=== PATIENT | male | born 1945 | race Caucasian/White ===

== ENCOUNTER → 2024-11-21 15:06 | Outpatient (REF) | payer MEDICARE, OTHER, SELFPAY | LOC: HWRCS 15:06 | PROVIDERS: ATTENDING PHYSICIAN Internal Medicine Cardiovascular Disease; FAMILY PHYSICIAN Internal Medicine Geriatric Medicine | DX: R06.09 Other forms of dyspnea (principal) | CPT/HCPCS: 93306 ==

== ENCOUNTER → 2024-11-26 11:37 | Outpatient (REF) | payer MEDICARE, OTHER, SELFPAY | LOC: HWRCS 11:37 | PROVIDERS: ATTENDING PHYSICIAN Internal Medicine Cardiovascular Disease; FAMILY PHYSICIAN Internal Medicine Geriatric Medicine | DX: R06.09 Other forms of dyspnea (principal) | CPT/HCPCS: 78452; 93017; A9500; J2785 ==

== ENCOUNTER 2025-05-19 19:43 | Emergency (ER) | payer MEDICARE, OTHER, SELFPAY ==
[2025-05-19] MEDS: LIDOCAINE URO-JET 2% 1 SYRINGE TOPICAL (20:04)
[2025-05-19 20:20] VITALS: BMI 28.9
[2025-05-19 21:00] VITALS: BP 163/90
[2025-05-19 21:04] LABS: Urine Character Clear (Clear)
[2025-05-19 21:08] LABS: Urine Squamous Cell 0-2 /LPF (Few); Urine White Cell 0-2 /HPF (0-5)
[2025-05-19] MEDS: FLEET PHOSPHATE ENEMA-ADULT 135 ML RECTAL (21:28)
--- NOTE | 2025-05-19 22:17 | ED.GENMED ---
History of Present Illness
General
Chief Complaint: Abdominal Symptoms
Source: patient
Exam Limitations: none
Time Seen by Provider: 05/19/25 19:56
Nursing documentation reviewed up to this point in time: agreed with
History of Present Illness
History of Present Illness:
Patient who has been taking OxyContin daily since fall and subsequent thoracic fracture 1 month ago, presents to ED secondary to difficulty with bowel movement despite urge over the past 1 week. This afternoon, patient went to the bathroom on
multiple occasions and sat on the toilet, but was unable to have bowel movement. Approximately 2 hours prior to arrival in ED, patient also noticed that he was unable to urinate despite urge. Denies nausea or vomiting. Denies fever or chills.
Denies previous history of similar symptoms. Denies loss of appetite.
Past History
Past History
ED Past Medical History: None
ED Past Surgical History: None
Review of Systems
Review of Systems
Allergies reviewed?: Yes
All Other Systems: ROS reviewed and negative except as documented in HPI and ROS
Constitutional: Reports no symptoms; Denies fever or chills
ABD/GI: Reports abdominal pain and constipated; Denies vomiting
: Reports difficulty voiding
Musculoskeletal: Reports no symptoms
Skin: Reports no symptoms
Neurological: Reports no symptoms
Phy Exam
Physical Exam
Physical Exam:
Physical Exam
General: mild distress, not acutely ill. afebrile
Head: nc/at. eomi
Neck: supple. normal range of motion
Abdomen: normal bowel sounds. not tender. no distention
Neuro: alert and oriented x3. no focal neurological deficits
Skin: no rash
Psychiatric: well kept. interactive and cooperative
Extremities: no edema. no calf tenderness.
Sepsis
Sepsis Screening
Sepsis Assessment: Sepsis Ruled Out
Sepsis Screen
Sepsis Screen: Sepsis Ruled Out
Date: 05/19/25
Time: 23:48
Course
Orders/Labs/Results
Orders:
Orders
05/19/25 19:56
Valencia Placement- Treatment ONCE
Reason for insertion: Acute Retention
05/19/25 20:02
Lidocaine 2% [Lidocaine Uro-Jet 2%] 1 syringe .ROUTE .STK-MED ONE
Lidocaine 2% [Lidocaine Uro-Jet 2%] 1 syringe TOPICAL NOW STA
05/19/25 20:37
Urinalysis Reflex To Culture Urgent
Date Specimen was Collected: 05/19/25
Time Specimen was Collected: 20:35
Urine Microscopic Reflex Cult Urgent
05/19/25 20:55
Phosphate Enema [Fleet Phosphate Enema-Adult] 135 ml RECTAL NOW STA
Abnormal Lab Results
05/19/25
20:37
Ur Occult Blood Reflex 1+ A
(Negative)
Urine RBC 3-6 A /HPF
(0-2)
Urine Bacteria (Reflex) Few A
(Negative)
Urine Glucose 4+ A
(Negative)
Urine Albumin (Reflex) 2+ A
(Neg - Trace)
Vital Signs
Initial and Last Documented VS:
Initial Vital Signs
Temp
98.6 F
05/19/25 19:47
Last Documented Vital Signs
Temp Pulse Resp BP Pulse Ox
98.6 F 92 16 162/92 98
05/19/25 19:47 05/19/25 22:41 05/19/25 22:41 05/19/25 22:41 05/19/25 22:41
MDM/Problems Addressed
MDM/Problems Addressed:
Valencia catheter inserted after bladder scan, with improvement in symptoms. Subsequently, rectal exam (DORY Ng, at bedside) reveals moderate amount of hard stool, which was removed manually. Afterwards, patient was given Fleet enema, with large
bowel movement afterwards. Patient reports significant improvement in symptoms. Patient's presenting urinary retention, likely secondary to narcotic utilization along with constipation. Without patient having had previous urinary difficulties, no
indication to leave Valencia catheter in at this time. As such, Valencia catheter will be removed prior to discharge, with recommendation to follow-up with PCP as an outpatient. Patient will be encouraged to continue to use daily stool softener along
with laxatives, as well as talking with his primary care physician about discontinuing narcotics.
*Pulse Oximetry
SaO2: 100
Patient hypoxic: no
*Critical Care Note
Total Time (30-74mins, 75-104mins- exclusive of procedures): Not Applicable
ED Attending Note
-
Portions of this chart may have been created with voice recognition software.� Occasional wrong word or��sound alike� substitutions may have occurred due to the inherent limitations of voice recognition software.
Discharge Plan
Departure
Patient Disposition: Home (Routine Discharge)
Date of Disposition: 05/19/25
Time of Disposition: 22:21
Patient with high blood pressure during this ER visit?: Yes
Condition: Fair
Discharge Problem:
Constipation, Acute urinary retention
Instructions: Constipation, Adult (DC), Urinary retention (DC)
Referrals:
Mecca Girard DO [Family Provider, Internal Medicine]
Activity Restrictions/Additional Instructions:
As discussed, please follow-up with your primary care physician for reevaluation. Please continue to use daily stool softener along with laxative, as long as you are continuing to utilize narcotics for pain control.
Interventions
Interventions:
*Risk Screen - Suicide Last Done: 05/19/25 19:47
*General Assessment Last Done: 05/19/25 19:47
*Neglect/Abuse Screening Last Done: 05/19/25 19:47
*ED- Fall Risk Assessment Last Done: 05/19/25 19:47
*ED COVID-19 Vaccine History Last Done: 05/19/25 19:47
*ED Influenza Vaccine History Last Done: 05/19/25 19:47
*Nursing Disposition Last Done: 05/19/25 22:41
EJ-Plxvct-Csbdupmdlj Assessment Last Done: 05/19/25 20:21
Discharge Date and Time
Discharge Date/Time: 05/19/25 22:43
Print Language: [id number]
[2025-05-19 22:41] VITALS: BP 162/92
== END 2025-05-19 22:43 | disposition home or self-care (01) ==
LOC: EMR 19:43
PROVIDERS: EMERGENCY PHYSICIAN Emergency Medicine; FAMILY PHYSICIAN Internal Medicine
DX: K59.00 Constipation, unspecified (principal); R33.9 Retention of urine, unspecified; Z87.81 Personal history of (healed) traumatic fracture
CPT/HCPCS: 99283; 51702; 81003; 81015